=== PATIENT | male | born 1995 | race Caucasian/White ===

== ENCOUNTER 2016-09-18 09:13 | Emergency (ER) | payer OTHER ==
[2016-09-18 09:35] VITALS: BP 119/73
--- NOTE | 2016-09-18 10:09 | UC ---
Throat Pain/Nasal Kwaku HPI - History of Current Complaint Chief Complaint: UCRespiratory Stated Complaint: SORE THROAT Hx Obtained From: Patient Onset/Duration: Sudden Onset, Lasting Days - 3, Still Present Cough: Nonproductive Associated Signs & Symptoms: Positive: Dysphagia, Nasal Discharge. Negative: Fever, Vomiting, Rash - Epiglottits Risk Factors Epiglottis Risk Factors: Negative - Allergies/Home Medications Allergies/Adverse Reactions: Allergies Allergy/AdvReac Type Severity Reaction Status Date / Time No Known Allergies Allergy Verified 09/18/16 09:35 Home Medications: Home Medications Menthol (Mouth-Throat) [Cough Drops] 7 mg MT DAILY 09/18/16 [History Confirmed 09/18/16] PMH/Surg Hx/FS Hx/Imm Hx Previously Healthy: Yes Respiratory History Of: Denies: Asthma - Surgical History Surgical History: None - Family History Known Family History: Negative: Cardiac Disease, Hypertension, Diabetes - Social History Occupation: Employed Full-time Lives: With Family Alcohol Use: None Substance Use Type: None Smoking Status (MU): Never Smoked Tobacco Review of Systems ENT: Sore Throat, Nasal Discharge Respiratory: Cough All Other Systems Reviewed And Are Negative: Yes Physical Exam Triage Information Reviewed: Yes Appearance: No Pain Distress, Ill-Appearing - mild, Thin Vital Signs: Initial Vital Signs Temp 98.4 F 09/18/16 09:24 Pulse 85 09/18/16 09:24 Resp 20 09/18/16 09:24 BP 119/73 09/18/16 09:24 Pulse Ox 99 09/18/16 09:24 Vital Signs Reviewed: Yes Eyes: Positive: Conjunctiva Clear ENT: Positive: Pharynx normal, TMs normal Neck exam: Normal Respiratory: Positive: Lungs clear. Negative: Wheezing Cardiovascular Exam: Normal Musculoskeletal Exam: Normal Neurological Exam: Normal Psychological Exam: Normal Skin Exam: Normal Throat Pain/Nasal Course/Dx - Differential Dx/Diagnosis Differential Diagnosis/HQI/PQRI: Influenza, Sinusitis, URI Provider Diagnoses: Acute URI Discharge - Discharge Plan Condition: Stable Disposition: HOME Patient Education Materials: Upper Respiratory Infection (ED)
== END 2016-09-18 10:13 | disposition home or self-care (01) ==
LOC: UCCORT 09:13
DX: J06.9 Acute upper respiratory infection, unspecified (principal)
CPT/HCPCS: 87651; 99211; G0463